=== PATIENT | female | born 2000 | race Caucasian/White ===

== ENCOUNTER 2022-10-17 09:51 | Outpatient (CLI) | payer OTHER | END 2022-10-17 20:17 | disposition home or self-care (01) | LOC: SRD 09:51 | DX: S29.9XXA Unspecified injury of thorax, initial encounter (principal); X58.XXXA Exposure to other specified factors, initial encounter; Y93.89 Activity, other specified; Y92.89 Other specified places as the place of occurrence of the external cause; Y99.8 Other external cause status | CPT/HCPCS: 71046-TC; 71100 ==

== ENCOUNTER 2022-12-12 09:20 | Outpatient (CLI) | payer OTHER | END 2022-12-12 20:18 | disposition short-term general hospital (02) | LOC: SCT 09:20 | PROVIDERS: ATTEND Nurse Practitioner Acute Care | DX: S29.9XXA Unspecified injury of thorax, initial encounter (principal); M51.44 Schmorl's nodes, thoracic region; X58.XXXA Exposure to other specified factors, initial encounter; Y93.89 Activity, other specified; Y92.89 Other specified places as the place of occurrence of the external cause; Y99.8 Other external cause status | CPT/HCPCS: 71250-TC; 76376 ==